=== PATIENT | male | born 1990 | race Hispanic/Latino ===

== ENCOUNTER 2020-06-29 20:25 | Emergency (ER) | payer BC, OTHER ==
[~2020-06-29] VITALS: Ht 157.5 cm; Wt 71.2 kg
[2020-06-29] MEDS ORDERED: FLUORESCEIN SOD(OPTH) 1 MG STRP ONE ×2 (21:11→21:21)
[2020-06-29] MEDS ORDERED: FLUORESCEIN SOD(OPTH) 1 MG STRP OP ONE (21:30)
[2020-06-29] MEDS ORDERED: TOBREX5 ML OP (21:38)
== END 2020-06-29 21:51 | disposition home or self-care (01) ==
LOC: FSED 20:40
DX: H10.9 Unspecified conjunctivitis (principal)
CPT/HCPCS: 99283